=== PATIENT | female | born 1995 | race Two or more races ===

== ENCOUNTER 2016-06-22 19:25 | Emergency (ER) | payer OTHER ==
[~2016-06-22] VITALS: Ht 193 cm; Wt 77.1 kg
[2016-06-22] MEDS ORDERED: ZOFR20TA PO (19:42)
[2016-06-22] MEDS ORDERED: PRENTAB40 PO (19:42)
[2016-06-22] MEDS ORDERED: UNIS25TA2 PO (19:42)
[2016-06-22] MEDS ORDERED: FIBECHW4 PO (19:42)
--- NOTE | 2016-06-22 21:40 | REPUSA ---
Clinical history: cramping, vaginal bleeding. Findings: Real-time transabdominal ultrasound images of the pelvis were obtained.. There is a single live intrauterine . The crown rump length measures 5.3cm. heart rate measures 165 bpm. There is no evidence of a subchorionic hemorrhage. An anteverted uterus is noted, measuring 4.1 x 4. 8 x 3.8 cm. The uterus demonstrates normal echotexture and echogenicity. The endometrial stripe measu res 3 mm and is within normal limits. The right ovary measures 3.5 x 2.4 x 3.2 cm. The left ovary jose sures 4.7 x 2.9 x 3.2 cm. No adnexal masses are seen. Color Doppler flow is seen within both ovaries. There is no evidence of free fluid. Impression: 1. Single live intrauterine measuring 12 weeks, with estimated due date of 01/04/2017. 2. No other gross abnormalities.
[2016-06-22 22:32] VITALS: BP 114/75
== END 2016-06-22 22:34 | disposition home or self-care (01) ==
LOC: M ED 21:23
DX: O99.89 Other specified diseases and conditions complicating pregnancy, childbirth and the puerperium (principal); N89.8 Other specified noninflammatory disorders of vagina; Z3A.12 12 weeks gestation of pregnancy; Z87.59 Personal history of other complications of pregnancy, childbirth and the puerperium; Z79.899 Other long term (current) drug therapy

== ENCOUNTER 2016-09-03 18:44 | Outpatient (CLI) | payer OTHER ==
[~2016-09-03] VITALS: Ht 162.6 cm; Wt 84.0 kg
[~2016-09-03 18:44] MED LIST: FIBECHW4 PO; PRENTAB40 PO; UNIS25TA2 PO; ZOFR20TA PO
[2016-09-03 19:02] VITALS: BP 124/77
[2016-09-03] MEDS ORDERED: TUMS500C PO (19:06)
[2016-09-03 20:07] LABS: MEAN CORPUSCULAR HEMOGLOBIN 27.4 pg (27.0-33.0); MEAN CORPUSCULAR HGB CONC 33.9 g/dl (32.0-36.5); MEAN CORPUSCULAR VOLUME 81.1 fl (80.0-96.0); RED CELL DISTRIBUTION WIDTH 16.2 % (11.5-14.5)
[2016-09-03 20:17] LABS: CALCIUM OXALATE CRYSTALS SMALL
[2016-09-03 20:42] LABS: ALBUMIN 2.9 GM/DL (3.2-5.2); ALBUMIN/GLOBULIN RATIO 0.85 (1.00-1.93); ALKALINE PHOSPHATASE 77 U/L (45-117); ALT/SGPT 17 U/L (12-78); AMYLASE 75 U/L (25-115); ANION GAP 7 MEQ/L (8-16); AST/SGOT 10 U/L (15-37); BILIRUBIN,TOTAL 0.2 MG/DL (0.2-1.0); BLOOD UREA NITROGEN 5 MG/DL (7-18); CALCIUM LEVEL 8.7 MG/DL (8.5-10.1); CARBON DIOXIDE LEVEL 24 MEQ/L (21-32); CHLORIDE LEVEL 107 MEQ/L (98-107); CREATININE FOR GFR 0.54 MG/DL (0.55-1.02); GLOMERULAR FILTRATION RATE > 60.0 (>60); GLUCOSE, FASTING 95 MG/DL (70-105); POTASSIUM SERUM 3.6 MEQ/L (3.5-5.1); SODIUM LEVEL 138 MEQ/L (136-145); TOTAL PROTEIN 6.3 GM/DL (6.4-8.2)
== END 2016-09-03 21:53 ==
LOC: M LDO 18:44
PROVIDERS: ATTEND Obstetrics & Gynecology
DX: O99.89 Other specified diseases and conditions complicating pregnancy, childbirth and the puerperium (principal); Z3A.22 22 weeks gestation of pregnancy; N39.0 Urinary tract infection, site not specified; R10.9 Unspecified abdominal pain; D72.829 Elevated white blood cell count, unspecified

== ENCOUNTER 2016-11-04 14:21 | Emergency (ER) | payer OTHER ==
[~2016-11-04] VITALS: Ht 162.6 cm; Wt 92.3 kg
[~2016-11-04 14:21] MED LIST changes: +TUMS500C PO
[2016-11-04] MEDS ORDERED: TYLE325T5 PO (14:34)
[2016-11-04] MEDS ORDERED: LACROIN OD (15:53)
[2016-11-04] MEDS ORDERED: PRED20TA PO (15:53)
[2016-11-04] MEDS ORDERED: VALT1TAB PO (15:53)
[2016-11-04 15:54] LABS: MEAN CORPUSCULAR HEMOGLOBIN 27.2 pg (27.0-33.0); MEAN CORPUSCULAR HGB CONC 33.3 g/dl (32.0-36.5); MEAN CORPUSCULAR VOLUME 81.6 fl (80.0-96.0); RED CELL DISTRIBUTION WIDTH 15.6 % (11.5-14.5); WHITE BLOOD COUNT 10.1 K/mm3 (4.0-10.0)
[2016-11-04 16:10] VITALS: BP 123/75
[2016-11-04 16:17] LABS: ANION GAP 11 MEQ/L (8-16); BLOOD UREA NITROGEN 4 MG/DL (7-18); CALCIUM LEVEL 8.8 MG/DL (8.5-10.1); CARBON DIOXIDE LEVEL 22 MEQ/L (21-32); CHLORIDE LEVEL 108 MEQ/L (98-107); CREATININE FOR GFR 0.57 MG/DL (0.55-1.02); GLOMERULAR FILTRATION RATE > 60.0 (>60); GLUCOSE, FASTING 93 MG/DL (70-105); POTASSIUM SERUM 4.2 MEQ/L (3.5-5.1); SODIUM LEVEL 141 MEQ/L (136-145)
[2016-11-08 00:08] LABS: Lyme Disease IgG Ab 18 kDa Ban Absent (.); Lyme Disease IgG Ab 23 kDa Ban Absent (.); Lyme Disease IgG Ab 28 kDa Ban Absent (.); Lyme Disease IgG Ab 30 kDa Ban Absent (.); Lyme Disease IgG Ab 39 kDa Ban Absent (.); Lyme Disease IgG Ab 41 kDa Ban Present (.); Lyme Disease IgG Ab 45 kDa Ban Absent (.); Lyme Disease IgG Ab 58 kDa Ban Absent (.); Lyme Disease IgG Ab 66 kDa Ban Absent (.); Lyme Disease IgG Ab 93 kDa Ban Absent (.); Lyme Disease IgG West Blot Int Negative (.); Lyme Disease IgG/IgM Antibodie <0.91 ISR (0.00-0.90); Lyme Disease IgM Ab 23 kDa Ban Present (.); Lyme Disease IgM Ab 39 kDa Ban Absent (.); Lyme Disease IgM Ab 41 kDa Ban Absent (.); Lyme Disease IgM Ab Quantitati 0.94 index (0.00-0.79); Lyme Disease IgM West Blot Int Negative (.)
== END 2016-11-04 16:14 | disposition home or self-care (01) ==
LOC: M ED 14:21
DX: O99.353 Diseases of the nervous system complicating pregnancy, third trimester (principal); G51.0 Bell's palsy; Z3A.30 30 weeks gestation of pregnancy

== ENCOUNTER 2016-11-06 17:35 | Outpatient (CLI) | payer OTHER ==
[~2016-11-06] VITALS: Ht 162.6 cm; Wt 94.7 kg
[~2016-11-06 17:35] MED LIST changes: +LACROIN OD; +PRED20TA PO; +TYLE325T5 PO; +VALT1TAB PO
[2016-11-06] MEDS ORDERED: RANI15ELUD PO (18:00)
[2016-11-06] MEDS ORDERED: stool softner PO (18:00)
[2016-11-06] MEDS ORDERED: FERR325T3 PO (18:00)
== END 2016-11-06 19:00 | disposition home or self-care (01) ==
LOC: M LDO 17:35
PROVIDERS: ATTEND Obstetrics & Gynecology
DX: O26.899 Other specified pregnancy related conditions, unspecified trimester (principal); Z3A.31 31 weeks gestation of pregnancy

== ENCOUNTER 2016-12-09 13:26 | Outpatient (CLI) | payer OTHER ==
[~2016-12-09] VITALS: Ht 162.6 cm; Wt 98.8 kg
[~2016-12-09 13:26] MED LIST changes: +FERR325T3 PO; +RANI15ELUD PO; +stool softner PO
[2016-12-09 13:51] VITALS: BP 120/71
--- NOTE | 2016-12-09 17:37 | IPNPDOC ---
Text Note Date of Service The patient was seen on 12/09/16. NOTE Helen is a 21yo with SIUP at 35w6d presenting to triage for cramping and vaginal pressure. She states she has stayed well hydrated, no recent intercourse, no vaginal bleeding, no loss of fluid. Vitals wnl, afebrile General: WDWN female resting comfortably Abdomen: soft, gravid, NTTP SCE (RN Christopher as recreation activities coordinator): closed/50/-3 Cat I FHRT, +accels, -decels, mod huma. [place]: no ctx. Assessment: Helen is a 21yo with SIUP at 35w6d with no evidence of labor. Vitals wnl, exam benign. Cat I FHRT, no ctx. SCE cl/50/-3. Plan: -routine ob care, keep visit scheduled tomorrow in clinic -good hydration -return precautions discussed Dr. Armando Bangura ([facility]), VS,Robby, I+O VS, Robby, I+O Vital Signs Date Time Temp Pulse Resp B/P (MAP) Pulse Ox O2 Delivery O2 Flow Rate FiO2 12/09/16 13:51 99.7 97 18 120/71 (87) ARMANDO BANGURA MD Dec 09, 2016 17:37
== END 2016-12-09 16:43 | disposition home or self-care (01) ==
LOC: M LDO 13:26
PROVIDERS: ATTEND Obstetrics & Gynecology
DX: O26.893 Other specified pregnancy related conditions, third trimester (principal); Z3A.35 35 weeks gestation of pregnancy

== ENCOUNTER 2017-01-10 06:43 | Inpatient (IN) | payer OTHER ==
[2017-01-10] VITALS (36 sets, daily range): BP systolic 111–170; BP diastolic 59–106
[~2017-01-10] VITALS: Ht 162.6 cm; Wt 103.0 kg
[2017-01-10] MEDS ORDERED: LR 1,000 ML IV ONE (07:45)
[2017-01-10] MEDS ORDERED: EVEN10003 PO (08:09)
[2017-01-10] MEDS ORDERED: ZANT1TAB PO (08:10)
[2017-01-10] MEDS ORDERED: ACET50TA PO (08:11)
[2017-01-10 08:18] LABS: MEAN CORPUSCULAR HEMOGLOBIN 27.4 pg (27.0-33.0); MEAN CORPUSCULAR HGB CONC 32.7 g/dl (32.0-36.5); MEAN CORPUSCULAR VOLUME 83.9 fl (80.0-96.0); PLATELET COUNT, AUTOMATED 335 10^3/uL (150-450); RED CELL DISTRIBUTION WIDTH 18.7 % (11.5-14.5); WHITE BLOOD COUNT 12.4 10^3/uL (4.0-10.0)
[2017-01-10] MEDS ORDERED: LR 1,000 ML IV SCH ×2 (08:37)
[2017-01-10] MEDS ORDERED: LACTATED RINGER'S 1000 ML IV STA (08:37)
[2017-01-10] MEDS ORDERED: OXYTOCIN DRIP 30 UNITS in APPROPRIATE DILUENT 1 EA IV SCH (08:45)
[2017-01-10] MEDS ORDERED: ACETAMINOPHEN 500 MG TAB PO ONE (14:30)
[2017-01-10] MEDS ORDERED: BUTORPHANOL 2 MG/ML INJ (J0595) IV ONE (14:30)
[2017-01-10] MEDS ORDERED: PROMETHAZINE INJ 25 MG/ML VIAL (J2550) IV ONE (14:30)
[2017-01-10] MEDS ORDERED: FENTANYL 2MCG/ML ROPIVACAINE 0.2% IN 0.9% NACL 200ML IVBAG As Ordered ONE (16:49)
[2017-01-10] MEDS ORDERED: EPIDURAL/PCA KEYS XX PRN (17:45)
[2017-01-10] MEDS ORDERED: REFRIGERATOR IV KEYS XX PRN (17:45)
[2017-01-10] MEDS ORDERED: ONDANSETRON 4MG/2ML VIAL (J2405) IV PRN (17:45)
[2017-01-10] MEDS ORDERED: LACTATED RINGER'S 1000 ML IV PRN (17:45)
[2017-01-10] MEDS ORDERED: diphenhydrAMINE INJ 50MG/ML VIAL (J1200) IV PRN (17:45)
[2017-01-10] MEDS ORDERED: EPIDURAL COMMENT XX SCH (17:45)
[2017-01-10] MEDS ORDERED: FENTANYL/ROPIVACAINE/NACL BAG 200 ML EPIDURAL SCH (17:45)
[2017-01-10] MEDS ORDERED: NALOXONE INJ 0.4 MG/1 ML VIAL (J2310) IV PRN (17:45)
[2017-01-10] MEDS ORDERED: ePHEDrine SULFATE 25 MG/5 ML(5MG/ML) SYRINGE IV PRN (17:45)
[2017-01-11 01:41] LABS: CORD GAS ABE A -5.5; CORD GAS O2 SAT A 23.4 %; CORD GAS PH A 7.171 UNITS; CORD GAS PO2 A 16.6 mmHg; CORD GAS SBC A 18.1 MEQ/L; CORD GAS TCO2 A 27.2 MEQ/L
[2017-01-11 01:42] LABS: CORD GAS ABE V -5.8; CORD GAS HCO3 V 20.9 MEQ/L; CORD GAS O2 SAT V 56.3 %; CORD GAS PCO2 V 44.9 mmHg; CORD GAS PH V 7.285 UNITS; CORD GAS PO2 V 25.8 mmHg; CORD GAS SBC V 18.7 MEQ/L; CORD GAS TCO2 V 22.2 MEQ/L
[2017-01-11] MEDS ORDERED: METHYLERGONOVINE MALEATE 0.2 MG TAB PO PRN (01:45)
[2017-01-11] MEDS ORDERED: DIBUCAINE 1% OINTMENT 30GM TOP PRN (01:45)
[2017-01-11] MEDS ORDERED: MEASLES,MUMPS,RUBELLA VACCINE INJ (MMR-II) (90707) SC SCH (01:45)
[2017-01-11] MEDS ORDERED: ANUSOL HC CREAM 30GM TOP PRN (01:45)
[2017-01-11] MEDS ORDERED: DOCUSATE SODIUM 100 MG CAP PO PRN (01:45)
[2017-01-11] MEDS ORDERED: MOM 30ML SUSPENSION UDC PO PRN (01:45)
[2017-01-11] MEDS ORDERED: RHOGAM 300 MCG (1500 IU) INJ (J2790) IM SCH (01:45)
[2017-01-11] MEDS: AMPICILLIN SOD/SULBACTAM SOD 3 GM in D5W MINI-BAG PLUS 100 ML IV SCH ×4 (02:38→20:21)
[2017-01-11 03:00] VITALS: BP 130/71
[2017-01-11] MEDS: IBUPROFEN 800 MG TAB PO PRN ×2 (04:18→15:15)
[2017-01-11 06:00] VITALS: BP 127/75
[2017-01-11] MEDS: PRENATAL VITAMINS CHEWABLE TABLET PO SCH (08:15)
[2017-01-11] MEDS ORDERED: OXYTOCIN INJ 10 UNITS/ML VIAL (J2590) IV ONE (08:45)
--- NOTE | 2017-01-11 16:49 | DN ---
DATE: 01/10/2017 This lady is a 21-year-old 3 admitted in spontaneous labor with a prolonged deceleration for three minutes at 40 and 3 weeks of gestation. She was augmented with Pitocin, had an epidural in place, delivered in the persistent occiput posterior (POP) position, a live male infant, 7 pounds 13 ounces, 3540 grams, scores of 8 and 9 at one and five minutes respectively. There was terminal meconium at delivery. The placenta delivered spontaneously after three-vessel and cord membranes and tissues intact. She sustained a small vaginal tear, which was oversewn with a 2-0 Vicryl and [id number]. The uterus contracted well down on Pitocin. The patient and baby tolerated the procedure well. The rest of the vaginal examination was negative. The sphincter was tight and there was no evidence of other cervical lacerations. The patient and baby tolerated the procedure well.
[2017-01-11 18:21] VITALS: BP 121/83
[2017-01-11] MEDS ORDERED: diphenhydrAMINE 25 MG CAP PO ONE (21:45)
[2017-01-12] MEDS: AMPICILLIN SOD/SULBACTAM SOD 3 GM in D5W MINI-BAG PLUS 100 ML IV SCH (01:59)
[2017-01-12 06:14] VITALS: BP 115/65
[2017-01-12 07:06] LABS: MEAN CORPUSCULAR HEMOGLOBIN 27.4 pg (27.0-33.0); MEAN CORPUSCULAR HGB CONC 32.3 g/dl (32.0-36.5); PLATELET COUNT, AUTOMATED 250 10^3/uL (150-450); RED CELL DISTRIBUTION WIDTH 18.6 % (11.5-14.5); WHITE BLOOD COUNT 14.6 10^3/uL (4.0-10.0)
[2017-01-12] MEDS: PRENATAL VITAMINS CHEWABLE TABLET PO SCH (08:54)
[2017-01-12] MEDS: IBUPROFEN 800 MG TAB PO PRN ×2 (08:54→16:25)
[2017-01-12 17:57] VITALS: BP 128/87
[2017-01-12] MEDS: ACETAMINOPHEN 500 MG TAB PO PRN (22:16)
[2017-01-13] MEDS: IBUPROFEN 800 MG TAB PO PRN (02:54)
[2017-01-13 06:00] VITALS: BP 119/57
[2017-01-13] MEDS: ACETAMINOPHEN 500 MG TAB PO PRN (08:22)
[2017-01-13] MEDS: PRENATAL VITAMINS CHEWABLE TABLET PO SCH (08:22)
--- NOTE | 2017-01-13 09:06 | IPNPDOC ---
Progress Note Date of Service The patient was seen on 01/13/17 at 09:02. Progress Note Progress Note Helen is a 21y/o [id number] doing well on PPD#3 after uncomplicated . She is ambulating/voiding/tolerating regular diet with no issues. Denies F/C/N/V/SOB /CP. Lochia very minimal and without problem. O: VSS/AF. Gen: A&Ox3, NAD Abdomen: soft, NTTP, ND, Fundus firm at u-2cm Ext: 2+ BLE DP/PT Assessment: Helen is a 21y/o [id number] doing well on PPD#3 after uncomplicated . Vitals wnl, benign exam. Meeting all milestones and desiring discharge. Hemodynamically stable with no evidence of infection. Plan: -Discharge to home with routine 6wk PP visit -discussed return precautions -has home meds to take after discharge: tylenol, motrin, colace, lanolin Dr. Cristin Guzman MD VS, I&O, 24H, Fishbone Vital Signs/I&O Vital Signs Date Time Temp Pulse Resp B/P (MAP) Pulse Ox O2 Delivery O2 Flow Rate FiO2 01/13/17 06:00 99.2 74 17 119/57 (77) 98 Room Air Cristin Guzman MD Jan 13, 2017 09:06
[2017-01-13] MEDS ORDERED: NUPE1OIN2 TOP (11:06)
[2017-01-13] MEDS ORDERED: ANUS2.5C2 TOP (11:06)
[2017-01-13] MEDS ORDERED: IBUP-1114 PO (11:06)
[2017-01-13] MEDS ORDERED: COLA100C5 PO (11:06)
--- NOTE | 2017-01-14 13:56 | IPN ---
DATE: 01/11/2017 This patient and have requested circumcision of their male . After discussing risks, benefits of circumcision, the medical nonmedical indications of circumcision, penile block, aftercare and complications, they expressed understanding of the issues. Answered all questions, signed and witnessed consent form. We await the clearance by the reliability engineer.
== END 2017-01-13 12:15 | disposition home or self-care (01) | DRG 775 ==
LOC: M LDO 06:43 → M LDI 07:33 → M OBS 01-11 03:00
PROVIDERS: ADMIT Student in an Organized Health Care Education/Training Program; ATTEND Student in an Organized Health Care Education/Training Program
PROC: 10E0XZZ Delivery of Products of Conception, External Approach (ICD-10-PCS; principal; 2017-01-10)
PROC: 0HQ9XZZ Repair Perineum Skin, External Approach (ICD-10-PCS; 2017-01-10)
DX: O48.0 Post-term pregnancy (principal); Z37.0 Single live birth; Z3A.40 40 weeks gestation of pregnancy; O76 Abnormality in fetal heart rate and rhythm complicating labor and delivery; O64.0XX0 Obstructed labor due to incomplete rotation of fetal head, not applicable or unspecified; O77.0 Labor and delivery complicated by meconium in amniotic fluid; O70.0 First degree perineal laceration during delivery

== ENCOUNTER 2017-04-30 09:12 | Inpatient (IN) | payer OTHER ==
[2017-04-30 09:57] LABS: HEMATOCRIT 42.8 % (36.0-47.0); HEMOGLOBIN 14.5 g/dl (12.0-16.0); MEAN CORPUSCULAR HEMOGLOBIN 28.2 pg (27.0-33.0); MEAN CORPUSCULAR HGB CONC 33.9 g/dl (32.0-36.5); MEAN CORPUSCULAR VOLUME 83.1 fl (80.0-96.0); PLATELET COUNT, AUTOMATED 316 10^3/uL (150-450); RED BLOOD COUNT 5.15 10^6/uL (4.00-5.40); RED CELL DISTRIBUTION WIDTH 13.3 % (11.5-14.5)
[2017-04-30 10:13] LABS: CONTROL LINE HCG INT CTR LINE PRESENT; HCG, SERUM QUALITATIVE NEGATIVE (NEGATIVE)
[2017-04-30 10:28] LABS: ALBUMIN/GLOBULIN RATIO 1.21 (1.00-1.93); ALKALINE PHOSPHATASE 107 U/L (45-117); ALT/SGPT 54 U/L (12-78); ANION GAP 9 MEQ/L (8-16); AST/SGOT 39 U/L (7-37); BILIRUBIN,DIRECT 0.1 MG/DL (0.0-0.2); BILIRUBIN,TOTAL 0.4 MG/DL (0.2-1.0); BLOOD UREA NITROGEN 7 MG/DL (7-18); CALCIUM LEVEL 8.5 MG/DL (8.5-10.1); CARBON DIOXIDE LEVEL 22 MEQ/L (21-32); CHLORIDE LEVEL 110 MEQ/L (98-107); CREATININE FOR GFR 0.58 MG/DL (0.55-1.30); GLOMERULAR FILTRATION RATE > 60.0 (>60); GLUCOSE, FASTING 81 MG/DL (70-100); POTASSIUM SERUM 4.1 MEQ/L (3.5-5.1); SALICYLATE LEVEL < 1.7 MG/DL (5.0-30.0); SODIUM LEVEL 141 MEQ/L (136-145); THYROID STIMULATING HORMONE 0.803 uIU/ML (0.358-3.740); TOTAL PROTEIN 7.3 GM/DL (6.4-8.2)
[2017-04-30 10:32] LABS: ACETAMINOPHEN LEVEL < 2.0 UG/ML (10.0-30.0); ETHYL ALCOHOL (ETHANOL) < 0.003 % (0.000-0.010)
[2017-04-30 10:44] LABS: AMPHETAMINES LEVEL URINE NEGATIVE (NEGATIVE); BARBITURATES URINE NEGATIVE (NEGATIVE); BENZODIAZEPINES URINE NEGATIVE (NEGATIVE); CANNABINOIDS URINE NEGATIVE (NEGATIVE); COCAINE METABOLITE URINE NEGATIVE (NEGATIVE); METHADONE URINE NEGATIVE (NEGATIVE); OPIATES URINE NEGATIVE (NEGATIVE); PHENCYCLIDINE URINE NEGATIVE (NEGATIVE)
[2017-04-30] MEDS: ACETAMINOPHEN TAB 650MG DOSE (2X325MG) PO ×2 (12:00→20:19)
[2017-04-30] MEDS ORDERED: MAALOX 30 ML SUSP *UDC PO (13:30)
[2017-04-30] MEDS ORDERED: MOM 30ML SUSPENSION UDC PO (13:30)
[2017-04-30] MEDS: CitaloPRAM (CeleXA) 20 MG TAB PO (17:27)
[2017-04-30] MEDS: traZODone 50 MG TAB PO (21:09)
[2017-05-01] MEDS: CitaloPRAM (CeleXA) 20 MG TAB PO (08:46)
[2017-05-01] MEDS: OLANZapine 5 MG TAB PO (08:47)
[2017-05-01] MEDS: traZODone 50 MG TAB PO (21:45)
[2017-05-02] MEDS: CitaloPRAM (CeleXA) 20 MG TAB PO (08:28)
[2017-05-02] MEDS: traZODone 50 MG TAB PO (22:52)
[2017-05-03] MEDS: CitaloPRAM (CeleXA) 20 MG TAB PO (09:04)
[2017-05-03] MEDS: ACETAMINOPHEN TAB 650MG DOSE (2X325MG) PO (13:49)
[2017-05-03] MEDS: traZODone 100 MG TAB PO (21:13)
[2017-05-03] MEDS: hydrOXYzine 25 MG TAB PO (22:48)
[2017-05-04] MEDS: CitaloPRAM (CeleXA) 20 MG TAB PO (08:31)
[2017-05-04] MEDS: hydrOXYzine 25 MG TAB PO (12:15)
[2017-05-04] MEDS: hydrOXYzine 50 MG TAB PO (16:34)
[2017-05-04] MEDS: traZODone 100 MG TAB PO (21:32)
[2017-05-05] MEDS: CitaloPRAM (CeleXA) 20 MG TAB PO (09:02)
[2017-05-05] MEDS ORDERED: hydrOXYzine 50 MG TAB PO (10:15)
[2017-05-05] MEDS: PROPRANOLOL 10 MG TAB PO (13:16)
[2017-05-05] MEDS: MIRTAZAPINE 7.5MG PER 1/2 TABLET PO (21:00)
[2017-05-06] MEDS: CitaloPRAM (CeleXA) 20 MG TAB PO (09:24)
[2017-05-06] MEDS: PROPRANOLOL 10 MG TAB PO (10:49)
== END 2017-05-06 11:00 | disposition home or self-care (01) | DRG 880 ==
LOC: M ED 09:12 → M ED INP 13:22 → M PSY 15:11
DX: F41.0 Panic disorder [episodic paroxysmal anxiety] (principal); R45.851 Suicidal ideations; F43.10 Post-traumatic stress disorder, unspecified; E66.9 Obesity, unspecified; Z68.34 Body mass index [BMI] 34.0-34.9, adult; Z79.899 Other long term (current) drug therapy; Z97.5 Presence of (intrauterine) contraceptive device

== ENCOUNTER 2017-10-21 15:20 | Emergency (ER) | payer OTHER | END 2017-10-21 18:15 | disposition home or self-care (01) | LOC: M ED 15:20 | DX: L60.0 Ingrowing nail (principal); F41.9 Anxiety disorder, unspecified; F32.9 Major depressive disorder, single episode, unspecified; Z79.899 Other long term (current) drug therapy | CPT/HCPCS: 99283 ==

== ENCOUNTER 2017-10-22 18:36 | Inpatient (IN) | payer OTHER ==
[2017-10-22] MEDS ORDERED: MOM 30ML SUSPENSION UDC PO (20:30)
[2017-10-22] MEDS ORDERED: ACETAMINOPHEN TAB 650MG DOSE (2X325MG) PO (20:30)
[2017-10-22] MEDS ORDERED: MAALOX 30 ML SUSP *UDC PO (20:30)
[2017-10-23] MEDS: traZODone 50 MG TAB PO (02:06)
[2017-10-23] MEDS ORDERED: PROPRANOLOL 10 MG TAB PO (15:00)
[2017-10-23] MEDS ORDERED: hydrOXYzine 50 MG TAB PO (15:00)
[2017-10-23] MEDS: FLUoxetine 20 MG CAP PO (15:16)
[2017-10-23] MEDS: MULTIVITAMINS/MINERALS THERAP 1 TAB PO (15:16)
[2017-10-23] MEDS: BACITRACIN OINT 30GM TOP (21:00)
[2017-10-23] MEDS: MICONAZOLE TOPICAL 2% CREAM 15GM TOP (21:00)
[2017-10-23] MEDS: PRAZOSIN 1 MG CAP PO (23:58)
[2017-10-24] MEDS: BACITRACIN OINT 30GM TOP ×2 (00:04→08:38)
[2017-10-24] MEDS: MICONAZOLE TOPICAL 2% CREAM 15GM TOP (00:04)
[2017-10-24] MEDS: MULTIVITAMINS/MINERALS THERAP 1 TAB PO ×2 (08:38→12:00)
[2017-10-24] MEDS: FLUoxetine 20 MG CAP PO ×2 (08:38→12:00)
[2017-10-25] MEDS: LORazepam 1 MG TAB PO (00:03)
[2017-10-25] MEDS: PRAZOSIN 1 MG CAP PO ×2 (00:04→23:09)
[2017-10-25] MEDS: MULTIVITAMINS/MINERALS THERAP 1 TAB PO (09:29)
[2017-10-25] MEDS: FLUoxetine 20 MG CAP PO (09:29)
[2017-10-25] MEDS: BACITRACIN OINT 30GM TOP ×2 (09:29→21:39)
[2017-10-25] MEDS: MICONAZOLE TOPICAL 2% CREAM 15GM TOP (21:00)
[2017-10-25] MEDS: LORazepam 2 MG TAB PO (23:09)
[2017-10-26] MEDS: MULTIVITAMINS/MINERALS THERAP 1 TAB PO (09:31)
[2017-10-26] MEDS: FLUoxetine 20 MG CAP PO (09:31)
[2017-10-26] MEDS: BACITRACIN OINT 30GM TOP ×2 (09:32→22:16)
[2017-10-26] MEDS: MICONAZOLE TOPICAL 2% CREAM 15GM TOP (21:00)
[2017-10-26] MEDS: LORazepam 2 MG TAB PO (22:15)
[2017-10-26] MEDS: PRAZOSIN 1 MG CAP PO (22:16)
[2017-10-27] MEDS: FLUoxetine 20 MG CAP PO (09:19)
[2017-10-27] MEDS: MULTIVITAMINS/MINERALS THERAP 1 TAB PO (09:19)
[2017-10-27] MEDS: BACITRACIN OINT 30GM TOP (09:20)
== END 2017-10-27 10:49 | disposition home or self-care (01) | DRG 882 ==
LOC: M PSY 10-23 01:03 → M ED 18:36 → M ED INP 20:27
DX: F43.10 Post-traumatic stress disorder, unspecified (principal); F33.1 Major depressive disorder, recurrent, moderate; Z91.5 Personal history of self-harm; Z79.899 Other long term (current) drug therapy

== ENCOUNTER 2017-11-12 10:36 | Day surgery (SDC) | payer OTHER ==
[2017-11-12] MEDS ORDERED: NS 1,000 ML IV (11:00)
[2017-11-12] MEDS ORDERED: LIDOCAINE 2% INJ 100 MG/5 ML SDV (FOR ANES.) As Ordered (12:07)
[2017-11-12] MEDS ORDERED: PROPOFOL 200 MG/20 ML VIAL As Ordered (12:07)
== END 2017-11-12 12:21 | disposition home or self-care (01) ==
LOC: M OPP 10:36
DX: K62.5 Hemorrhage of anus and rectum (principal); K60.2 Anal fissure, unspecified; K21.9 Gastro-esophageal reflux disease without esophagitis; R12 Heartburn; F41.9 Anxiety disorder, unspecified; F32.9 Major depressive disorder, single episode, unspecified; R51 Headache; Z79.899 Other long term (current) drug therapy
CPT/HCPCS: 45378